=== PATIENT | female | born 1950 | race Caucasian/White ===

== ENCOUNTER 2017-07-30 12:33 | Emergency (ER) | payer MEDICARE ==
[2017-07-30 12:40] VITALS: BP 177/73; PULSE 70; RESP 20; TEMP 98.5; O2SAT 97
[2017-07-30] MEDS ORDERED: LISI-515 PO (13:15)
[2017-07-30] MEDS ORDERED: VITAMIN B12 PO (13:15)
[2017-07-30] MEDS ORDERED: LEVO88TA2 PO (13:15)
[2017-07-30 13:22] VITALS: O2SAT 96
--- NOTE | 2017-07-30 13:22 | PD ---
HPI Chief Complaint: Abdominal Pain Time Seen by Provider: 13:10 Travel History International Travel<30 days: No Contact w/Intl Traveler<30days: No Traveled to known affect area: No History of Present Illness HPI C/O RT LOWER QUADRANT PAIN, [place], 8/10, RADIATING DOWN TO HER GROIN, NO CHANGE IN URINE COLOR, NO N/V/D/. PATIENT DECLINED NARCOTIC PAIN MEDS AND STATES ALLERGIC TO SULFA/AMOXIL AND DYSTONIA TO PHENERGAN PFSH Past Medical History Cancer: Yes (breast) Hypertension: Yes Thyroid Disease: Yes Social History Alcohol Use: Yes Tobacco Use: No Substance Use: No Allergies-Medications (Allergen,Severity, Reaction): Coded Allergies: Sulfa (Sulfonamide Antibiotics) (Verified Allergy, Unknown, 07/30/17) amoxicillin (Verified Allergy, Unknown, 07/30/17) Reported Meds & Prescriptions Reported Meds & Active Scripts Active Reported [Vitamin B12] 1,000 Mg PO M-F Levothyroxine (Levothyroxine Sodium) 88 Mcg Tab 88 Mcg PO DAILY Lisinopril 20 Mg Tab 20 Mg PO DAILY Review of Systems Except as stated in HPI: all other systems reviewed are Neg General / Constitutional: No: Fever Eyes: No: Visual changes HENT: No: Headaches Cardiovascular: No: Chest Pain or Discomfort Respiratory: No: Shortness of Breath Gastrointestinal: Positive: Abdominal Pain Genitourinary: Positive: Flank Pain Musculoskeletal: No: Pain Skin: No Rash Neurologic: No: Weakness Psychiatric: No: Depression Endocrine: No: Polydipsia Hematologic/Lymphatic: No: Easy Bruising Physical Exam Narrative GENERAL: SKIN: Warm and dry. HEAD: Atraumatic. Normocephalic. EYES: Pupils equal and round. No scleral icterus. No injection or drainage. ENT: No nasal bleeding or discharge. Mucous membranes pink and moist. NECK: Trachea midline. No JVD. CARDIOVASCULAR: Regular rate and rhythm. RESPIRATORY: No accessory muscle use. Clear to auscultation. Breath sounds equal bilaterally. GASTROINTESTINAL: Abdomen soft, non-tender, nondistended. RLQ TTP, NO REBOUND/ GUARDING/RIGIDITY MUSCULOSKELETAL: Extremities without clubbing, cyanosis, or edema. No obvious deformities. NEUROLOGICAL: Awake and alert. No obvious cranial nerve deficits. Motor grossly within normal limits. Five out of 5 muscle strength in the arms and legs. Normal speech. PSYCHIATRIC: Appropriate mood and affect; insight and judgment normal. Data Data Last Documented VS Vital Signs Date Time Temp Pulse Resp B/P (MAP) Pulse Ox O2 Delivery O2 Flow Rate FiO2 07/30/17 13:28 60 20 145/67 (93) 97 07/30/17 12:40 98.5 Orders Orders Complete Blood Count With Diff (07/30/17 13:11) Troponin I (07/30/17 13:11) Comprehensive Metabolic Panel (07/30/17 13:14) Lipase (07/30/17 13:14) Ct Abd/Pel W/O Iv Contrast (07/30/17 13:14) Iv Access Insert/Monitor (07/30/17 13:14) Ecg Monitoring (07/30/17 13:14) Oximetry (07/30/17 13:14) Ketorolac Inj (Toradol Inj) (07/30/17 13:30) Ondansetron Inj (Zofran Inj) (07/30/17 13:30) Labs Laboratory Tests Test 07/30/17 13:20 White Blood Count 6.5 TH/MM3 Red Blood Count 3.71 MIL/MM3 Hemoglobin 10.0 GM/DL Hematocrit 31.9 % Mean Corpuscular Volume 85.9 FL Mean Corpuscular Hemoglobin 27.1 PG Mean Corpuscular Hemoglobin Concent 31.5 % Red Cell Distribution Width 15.0 % Platelet Count 294 TH/MM3 Mean Platelet Volume 8.0 FL Neutrophils (%) (Auto) 64.0 % Lymphocytes (%) (Auto) 29.0 % Monocytes (%) (Auto) 4.3 % Eosinophils (%) (Auto) 2.0 % Basophils (%) (Auto) 0.7 % Neutrophils # (Auto) 4.2 TH/MM3 Lymphocytes # (Auto) 1.9 TH/MM3 Monocytes # (Auto) 0.3 TH/MM3 Eosinophils # (Auto) 0.1 TH/MM3 Basophils # (Auto) 0.0 TH/MM3 CBC Comment DIFF FINAL Differential Comment Blood Urea Nitrogen 28 MG/DL Creatinine 1.00 MG/DL Random Glucose 91 MG/DL Total Protein 7.0 GM/DL Albumin 3.6 GM/DL Calcium Level 8.1 MG/DL Alkaline Phosphatase 76 U/L Aspartate Amino Transf (AST/SGOT) 16 U/L Alanine Aminotransferase (ALT/SGPT) 21 U/L Total Bilirubin 0.2 MG/DL Sodium Level 135 MEQ/L Potassium Level 4.4 MEQ/L Chloride Level 102 MEQ/L Carbon Dioxide Level 25.0 MEQ/L Anion Gap 8 MEQ/L Estimat Glomerular Filtration Rate 55 ML/MIN Troponin I LESS THAN 0.02 NG/ML Lipase 165 U/L [facility] Medical Decision Making Medical Screen Exam Complete: Yes Emergency Medical Condition: Yes Medical Record Reviewed: Yes Differential Diagnosis APPY V COLITIS V DIVERTIC V KIDNEY STONE Narrative Course CT NEG FOR APPY, COLITIS BUT POSITIVE FOR DIVERTICULOSIS AND RIGHT KIDNEY STONE Diagnosis Primary Impression: Ureterolithiasis Patient Instructions: General Instructions, Kidney Stones (ED) Scripts Tamsulosin (Flomax) 0.4 Mg Cap 0.4 MG PO HS for Manage Prostate Problems, #5 CAP 0 Refills Prov: Dex Fisher MD 07/30/17 Tramadol (Ultram) 50 Mg Tab 50 MG PO Q4H Y for PAIN, #20 TAB 0 Refills Prov: Dex Fisher MD 07/30/17 Disposition: 01 DISCHARGE HOME Condition: Stable Dex Fisher MD Jul 30, 2017 13:22
[2017-07-30 13:28] VITALS: BP 145/67; PULSE 60; RESP 20; O2SAT 97
[2017-07-30] MEDS ORDERED: ONDANSETRON HCL 4 MG/2 ML VIAL IV PUSH ONE (13:30)
[2017-07-30] MEDS ORDERED: KETOROLAC TROMETHAMINE 30 MG/ML (IVP) VIAL IV PUSH ONE (13:30)
[2017-07-30 13:31] LABS: AUTOMATED NEUTROPHIL # 4.2 TH/MM3 (1.8-7.7); BASOPHIL % 0.7 % (0.0-2.0); EOSINOPHIL # 0.1 TH/MM3 (0-0.4); HEMATOCRIT 31.9 % (35.0-46.0); HEMO FLAGS DIFF FINAL; LYMPHOCYTE # 1.9 TH/MM3 (1.0-4.8); MEAN CELL VOLUME 85.9 FL (80.0-100.0); MEAN CORPUSCULAR HEMOGLOBIN 27.1 PG (27.0-34.0); MEAN CORPUSCULAR HGB CONC 31.5 % (32.0-36.0); MONO % 4.3 % (0.0-8.0); PLATELET COUNT 294 TH/MM3 (150-450); RED BLOOD COUNT 3.71 MIL/MM3 (4.00-5.30); WHITE BLOOD COUNT 6.5 TH/MM3 (4.0-11.0)
[2017-07-30 13:42] LABS: CHLORIDE 102 MEQ/L (98-107); POTASSIUM 4.4 MEQ/L (3.5-5.1); SODIUM (NA) 135 MEQ/L (136-145)
[2017-07-30 13:45] LABS: ANION GAP 8 MEQ/L (5-15)
[2017-07-30 13:46] LABS: BLOOD UREA NITROGEN 28 MG/DL (7-18)
[2017-07-30 13:48] LABS: ALT (GPT) 21 U/L (10-53); AST (GOT) 16 U/L (15-37)
[2017-07-30 13:49] LABS: GLOMERULAR FILTRATION RATE 55 ML/MIN (>89)
[2017-07-30 13:50] LABS: TOTAL BILIRUBIN ADULT 0.2 MG/DL (0.2-1.0)
[2017-07-30 13:51] LABS: ALKALINE PHOSPHATASE 76 U/L (45-117)
--- NOTE | 2017-07-30 14:29 | RADRPT ---
EXAM DATE/TIME: 07/30/2017 13:39 [place] COMPARISON: No previous studies available for comparison. INDICATIONS : Right flank and groin pain. ORAL CONTRAST: No oral contrast ingested. RADIATION DOSE: 13.57 CTDIvol (mGy) MEDICAL HISTORY : Hypertension. SURGICAL HISTORY : Tubal ligation. Left hip replacement. ENCOUNTER: Initial ACUITY: 4 - 6 days PAIN SCALE: 7/10 LOCATION: Right flank TECHNIQUE: Volumetric scanning of the abdomen and pelvis was performed. Using automated exposure control and ad justment of the mA and/or kV according to patient size, radiation dose was kept as low as reasonably achievable to obtain optimal diagnostic quality images. DICOM format image data is available electro nically for review and comparison. FINDINGS: Lung base is are clear. The portion of the liver and spleen visualized are unremarkable. The pancreas, adrenals unremarkable Right kidney: Nonobstructing forming or stone upper pole. There no calcifications along the course of the ureter. Left kidney: Extensive renal artery calcifications origin left renal. 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 Extensive degenerative changes in lower lumbar spine. CONCLUSION: 1. Nonobstructing right renal stone 2. There no stones in the left 3. Diverticuli sigmoid colon without diverticulitis. Venkata Lovelace MD FACR on July 30, 2017 at 14:24 Board Certified Radiologist. This report was verified electronically.
[2017-07-30] MEDS ORDERED: TRAM50 PO (14:57)
[2017-07-30] MEDS ORDERED: TAMS5CAP PO (14:57)
[2017-07-30 15:08] VITALS: RESP 18
[2017-07-30 15:09] VITALS: BP 129/71; PULSE 64
[2017-08-02] MEDS ORDERED: CYAN1TAB24 PO (12:34)
== END 2017-07-30 15:40 | disposition home or self-care (01) ==
LOC: PHED 12:33
DX: N20.0 Calculus of kidney (principal); I10 Essential (primary) hypertension
CPT/HCPCS: 74176; 80053; 83690; 84484; 85025; 96374; 96375; 99285; J1885; J2405